=== PATIENT | male | born 1990 | race Two or more races ===

== ENCOUNTER 2018-06-27 12:51 | Inpatient (IN) | payer OTHER ==
[~2018-06-27] VITALS: Ht 182.9 cm; Wt 108.0 kg
--- NOTE | 2018-06-27 13:00 | NUR ---
ADMISSION NOTES PT RECEIVED AT THIS TIME FROM [facility], A/O X4, AMBULATORY, NOTED TO HAVE ELEVATED RESPIRATIONS, LEFT FOREARM #20 IV IS PATENT AND INTACT, SAFETY PRECAUTIONS IN PLACE, CALL LIGHT WITHIN REACH, WILL MONITOR ACCORDINGLY
[2018-06-27] MEDS ORDERED: ZOLPIDEM TARTRATE 5 MG TABLET PO PRN (14:00)
[2018-06-27] MEDS ORDERED: HYDROCODONE/APAP 5/325MG 1 EACH TABLET PO PRN (14:00)
[2018-06-27] MEDS ORDERED: ACETAMINOPHEN 325 MG TABLET PO PRN (14:00)
[2018-06-27] MEDS ORDERED: ONDANSETRON HCL/PF 4 MG/2 ML VIAL IVP PRN (14:00)
[2018-06-27] MEDS ORDERED: Z GUARD REMEDY 2 OZ OINT TP PRN (14:00)
--- NOTE | 2018-06-27 14:00 | NUR ---
RN NOTE LUNGS WERE AUSCULTATED AND NOTED TO HAVE DIMINISHED SOUNDS WITH WHEEZING ON THE RIGHT SIDE, WILL MONITOR ACCORDINGLY
[2018-06-27] MEDS ORDERED: ACET325T53 PO (14:33)
[2018-06-27] MEDS ORDERED: ALBU18HF2 IH (14:33)
[2018-06-27] MEDS: ALBUTEROL FS 2.5 MG/0.5 ML VIAL.NEB NEB PRN (15:34)
[2018-06-27] MEDS: IPRATROPIUM NEB FS 0.5 MG/2.5 ML AMPUL.NEB NEB PRN (15:34)
--- NOTE | 2018-06-27 15:34 | NUR ---
RN NOTES RT PRESENT AT BEDSIDE FOR PRN BREATHING TREATMENT
--- NOTE | 2018-06-27 18:00 | NUR ---
MEDICATED FOR COUGH WITH ROBITUSSIN, Addendum: 06/27/18 at 1941 by MOJGAN MESA RN ABOVE INFO ON INCORRECT PT.
--- NOTE | 2018-06-27 18:47 | NUR ---
RN CLOSING NOTES PT IN BED AT LOWEST AND LOCKED POSITION WITH SIDE RAILS UP X2, A/O X4, NO S/S OF DISTRESS OR PAIN NOTED, NO COMPLAINTS OF SOB BUT RESPIRATIONS WERE SLIGHT ELEVATED, IV IS PATENT AND INTACT, SKIN INTACT, SAFETY PRECAUTIONS IN PLACE, CALL LIGHT WITHIN REACH, WILL ENDORSE TO GASSER MACHINE OPERATOR RN FOR GHADA.
--- NOTE | 2018-06-27 19:30 | NUR ---
RN NOTES RECEIVED PT. AWAKE ON BED, A/OX4, SR ON TELE MONITOR, HR-[id number], DENIES PAIN, NO SOB, CALL LIGHT WITHIN REACH, SIDERAILSUPX2, CONTINUE TO MONITOR
[2018-06-27 20:00] VITALS: BP 128/66
[2018-06-27] MEDS ORDERED: AZITHROMYCIN 500 MG in IV D5W 250 ML IV SCH (20:00)
--- NOTE | 2018-06-27 20:30 | NUR ---
RN NOTES PATIENT ACCIDENTALLY PULLED OUT HIS IV LINE... NEW IV LINE INSERTED ON THE LEFT FOREARM # 22
[2018-06-27] MEDS ORDERED: CEFTRIAXONE 1 G in IV D5W 50 ML IV SCH (21:00)
[2018-06-28] VITALS: BP 121/70
[2018-06-28 04:00] VITALS: BP 102/60
[2018-06-28] MEDS: ALBUTEROL FS 2.5 MG/0.5 ML VIAL.NEB NEB PRN (06:07)
[2018-06-28] MEDS: IPRATROPIUM NEB FS 0.5 MG/2.5 ML AMPUL.NEB NEB PRN (06:07)
--- NOTE | 2018-06-28 07:20 | NUR ---
RN OPENING NOTES RECEIVED PATIENT IN BED RESTING. A/OX4, ABLE TO MAKE NEEDS KNOWN. NO DISTRESS, NO SOB. DENIED PAIN OR DISCOMFORT. IV ACCESS INTACT AND PATENT. KEPT PATIENT SAFE AND COMFORTABLE. BED IN LOW/LOCKED POSITION, SIDERAILS UPX2, CALL LIGHT. WILL CONTINUE TO MONITOR ACCORDINGLY.
--- NOTE | 2018-06-28 07:26 | NUR ---
RN NOTES AWAKE, DENEIS PAIN, NO SOB, PT. NEEDS ATTENDED
[2018-06-28 07:30] LABS: BASOPHILS % (AUTO) 0.1 % (0.0-2.0); EOSINOPHILS % (AUTO) 0.5 % (0.0-6.0); HEMATOCRIT 44 % (39-51); HEMOGLOBIN 14.9 g/dL (13.5-17.5); LYMPHOCYTES # (AUTO) 1.3 /CMM (0.8-4.8); LYMPHOCYTES % (AUTO) 28.4 % (20.0-44.0); MEAN CORPUSCULAR HGB CONC 34 g/dl (31.0-36.0); MEAN CORPUSCULAR VOLUME 86 fL (80-96); MONOCYTES # (AUTO) 0.4 /CMM (0.1-1.30); MONOCYTES % (AUTO) 7.9 % (2.0-12.0); NEUTROPHILS # (AUTO) 2.8 /CMM (1.8-8.9); NEUTROPHILS % (AUTO) 63.1 % (43.0-81.0); PLATELET COUNT (AUTO) 116 /CMM (150-450); WHITE BLOOD COUNT (AUTO) 4.5 K/uL (4.3-11.0)
[2018-06-28 07:45] LABS: CALCIUM, SERUM 8.2 mg/dL (8.5-10.1); CREATININE 0.8 mg/dL (0.6-1.3); MAGNESIUM 2.1 mg/dL (1.8-2.4); PHOSPHORUS 3.1 mg/dL (2.5-4.9); POTASSIUM 3.5 mmol/L (3.5-5.1)
[2018-06-28 08:00] VITALS: BP 144/69
[2018-06-28] MEDS ORDERED: METH4TAB17 PO (11:09)
[2018-06-28] MEDS ORDERED: LEVO500T75 PO (11:09)
--- NOTE | 2018-06-28 12:10 | NUR ---
DISCHARGED PATIENT IN STABLE CONDITION ACCOMPANIED BY PRIMARY NURSE TO THE LOBBY. DISCHARGE INSTRUCTIONS GIVEN, VERBALIZED UNDERSTANDING. DC PAPERWORK AND PRESCRIPTIONS GIVEN. ALL BELONGINGS RETURNED, FORM SIGNED. PATIENT PULLED OUT HIS IV ACCESS. APPLIED PRESSURE, NO COMPLICATIONS, IV CATHETER TIP INTACT. NO OPEN WOUND PER PATIENT. REFUSED PHOTO.
== END 2018-06-28 12:10 | disposition home or self-care (01) | DRG 133 ==
LOC: TELE 12:51 → MED 06-28 10:36
PROVIDERS: ADMIT Nurse Practitioner Acute Care; ATTEND Nurse Practitioner Acute Care
DX: J96.01 Acute respiratory failure with hypoxia (principal); D68.59 Other primary thrombophilia; J45.901 Unspecified asthma with (acute) exacerbation; E66.9 Obesity, unspecified; F12.90 Cannabis use, unspecified, uncomplicated; Z68.32 Body mass index [BMI] 32.0-32.9, adult; Z98.890 Other specified postprocedural states; Z79.51 Long term (current) use of inhaled steroids
CPT/HCPCS: 36415; 80048-TC; 80061-TC; 83735-TC; 84100-TC; 85025-TC; 87081-TC; G0378; J0456; J0696; J7050; J7060